=== PATIENT | male | born 1980 | race Caucasian/White ===

== ENCOUNTER 2017-03-03 07:21 | Emergency (ER) | payer OTHER ==
[2017-03-03] MEDS: SODIUM CHLORIDE 0.9% 500 ML IV STA ×2 (07:21→07:22)
[2017-03-03] MEDS ORDERED: ONDANSETRON 4 MG/2 ML VIAL IVP STA (07:23)
[2017-03-03] MEDS ORDERED: SODIUM CHLORIDE 0.9% 1,000 ML IV STA (07:23)
[2017-03-03] MEDS: HYDROmorphone 1 MG/ML 1 ML SYRINGE IVP STA ×2 (07:23→08:20)
[2017-03-03] MEDS ORDERED: RX INFO: IV CONTRAST WAS GIVEN 1 EACH MISC MISCELLANE PRN (07:23)
[2017-03-03] MEDS ORDERED: DIPH,PERTUS(ACELL)TETVAC-LF 0.5 ML VIAL IM ONE (07:23)
[2017-03-03] MEDS ORDERED: cefTRIAXone 2,000 MG in SODIUM CHLORIDE 0.9% 100 ML IVPB STA (07:28)
[2017-03-03 07:36] LABS: Basophils # (A) 0.1 k/uL (0-0.2); Basophils % (A) 1 %; CH 30.5; CHCM 33.2; Eosinophils # (A) 0.6 k/uL (0-0.7); Eosinophils % (A) 5 %; HCT 44.4 % (39.0-53.0); HDW 2.17; HGB 14.7 gm/dL (13.0-17.5); Luc # (Auto) 0.34; Luc % (Auto) 3; Lymphocytes % (A) 30 %; MCH 30.6 pg (25.0-35.0); MCHC 33.2 g/dL (31.0-37.0); MCV 92.2 fL (80.0-100.0); Mean Platelet Volume 7.2; Monocytes # (A) 0.6 k/uL (0-1.0); Monocytes % (A) 4 %; Neutrophils # (A) 7.8 k/uL (1.3-7.7); Neutrophils % (A) 58 %; RBC 4.82 m/uL (4.30-5.90); RDW 12.9 % (11.5-15.5); WBC 13.4 k/uL (3.8-10.6); WBC (Perox) 12.99
[2017-03-03 07:39] LABS: Glucose,Whole Blood 118 mg/dL (75-99)
[2017-03-03 07:41] LABS: Partial Thromboplastin Time 23.1 sec (22.0-30.0); Prothrombin Time 10.5 sec (9.0-12.0)
[2017-03-03 07:42] LABS: ALT 26 U/L (21-72); AST 19 U/L (17-59); Alkaline Phosphatase 38 U/L (38-126); Amylase 67 U/L (30-110); Anion Gap 16 mmol/L; Blood Urea Nitrogen 11 mg/dL (9-20); Calcium 8.5 mg/dL (8.4-10.2); Carbon Dioxide 20 mmol/L (22-30); Chloride 106 mmol/L (98-107); Glucose 97 mg/dL (74-99); Non-African American GFR(MDRD) >60 (>60 ml/min/1.73 sqM); Potassium 4.3 mmol/L (3.5-5.1); Sodium 142 mmol/L (137-145); Total Bilirubin 0.4 mg/dL (0.2-1.3); Total Protein 6.7 g/dL (6.3-8.2)
[2017-03-03 07:44] LABS: Alcohol 179 mg/dL
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
[2017-03-03 07:55] LABS: Creatine Kinase 99 U/L (55-170)
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
[2017-03-03 08:07] LABS: Creatine Kinase MB 0.7 ng/mL (0.0-2.4); Troponin I <0.012 ng/mL (0.000-0.034)
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
[2017-03-03 08:24] LABS: Appearance,Urine Clear (Clear); Bilirubin,Urine Negative (Negative); Glucose,Urine (UA) Negative (Negative); Ketones,Urine Negative (Negative); Leukocyte Esterase,Urine Negative (Negative); Nitrite,Urine Negative (Negative); Protein,Urine Negative (Negative); Specific Gravity,Urine 1.012 (1.001-1.035); UA Billing (MACRO vs. MICRO) CHEM; Urobilinogen,Urine <2.0 mg/dL (<2.0)
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
[2017-03-03] MEDS ORDERED: ceFAZolin 1,000 MG VIAL IV STA (08:44)
[2017-03-03 08:45] VITALS: BP 140/97; PULSE 104; RESP 20; TEMP 97.7
[2017-03-03] MEDS ORDERED: ceFAZolin 1,000 MG in DEXTROSE/WATER 1 50ML.BAG IVPB STA (08:48)
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
== END 2017-03-03 11:24 | disposition short-term general hospital (02) ==
LOC: EC 07:21
DX: S01.01XA Laceration without foreign body of scalp, initial encounter (principal); S67.22XA Crushing injury of left hand, initial encounter; F10.129 Alcohol abuse with intoxication, unspecified; M54.2 Cervicalgia; F17.200 Nicotine dependence, unspecified, uncomplicated; V48.5XXA Car driver injured in noncollision transport accident in traffic accident, initial encounter; Y92.410 Unspecified street and highway as the place of occurrence of the external cause
CPT/HCPCS: 99291; 96365 ×2; 96375 ×2; 96361 ×3; 12002; 36415; 93005; 86900; 86901; 80053; 82150; 82550; 82553; 83690; 84484; 85025; 85610; 85730; 86850; 81003; 80306; 80320; 71010; 72170; 73130; 72125; 70486; 70450; 71260; 74177; J2405; J0696; J1170; Q9967; J0690

== ENCOUNTER 2017-03-16 12:29 | Emergency (ER) | payer OTHER ==
[2017-03-16 12:36] VITALS: BP 146/88; PULSE 71; RESP 17; TEMP 97.5
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
== END 2017-03-16 13:19 | disposition home or self-care (01) ==
LOC: EC 12:29
DX: S66.912D Strain of unspecified muscle, fascia and tendon at wrist and hand level, left hand, subsequent encounter (principal); F17.200 Nicotine dependence, unspecified, uncomplicated; V87.8XXD Person injured in other specified noncollision transport accidents involving motor vehicle (traffic), subsequent encounter; Y92.410 Unspecified street and highway as the place of occurrence of the external cause
CPT/HCPCS: 99283

== ENCOUNTER 2017-04-13 10:50 | Emergency (ER) | payer OTHER ==
[2017-04-13 10:57] VITALS: BP 151/90; PULSE 88; RESP 16; TEMP 97
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
== END 2017-04-13 11:52 | disposition home or self-care (01) ==
LOC: EC 10:50
DX: M79.642 Pain in left hand (principal); Z98.890 Other specified postprocedural states; Z88.0 Allergy status to penicillin
CPT/HCPCS: 99283

== ENCOUNTER 2018-07-23 15:03 | Emergency (ER) | payer OTHER ==
[2018-07-23 15:18] VITALS: BP 128/86; PULSE 88; RESP 20; TEMP 97.5
[2018-07-23] MEDS ORDERED: PROPARACAINE 0.5% OPHTH DROPS 15 ML BTL LEFT EYE STA (15:30)
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
[2018-07-23] MEDS ORDERED: ERYTHROMYCIN 5 MG/GM OPHTH OINT 3.5 GM TUBE RIGHT EYE STA (16:16)
[2018-07-23] MEDS ORDERED: ERYTHROMYCIN 5 MG/GM OPHTH OINT 3.5 GM TUBE RIGHT EYE SCH (18:00)
== END 2018-07-23 16:51 | disposition home or self-care (01) ==
LOC: EC 15:03
DX: T15.01XA Foreign body in cornea, right eye, initial encounter (principal); Z88.0 Allergy status to penicillin; Y92.69 Other specified industrial and construction area as the place of occurrence of the external cause; Y99.0 Civilian activity done for income or pay
CPT/HCPCS: 65220; 99283

== ENCOUNTER 2020-11-23 13:59 | Emergency (ER) | payer OTHER ==
[2020-11-23 14:12] VITALS: BP 127/83; PULSE 108; RESP 20; TEMP 98.3
[2020-11-23] MEDS ORDERED: ONDANSETRON 4 MG ODT STARTER PACK 2 TAB BTL PO STA (14:37)
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
== END 2020-11-23 14:58 | disposition home or self-care (01) ==
LOC: EC 13:59
DX: R51.9 Headache, unspecified (principal); Z88.0 Allergy status to penicillin
CPT/HCPCS: 99284; S0119

== ENCOUNTER 2021-06-05 21:20 | Emergency (ER) | payer OTHER ==
[2021-06-05 21:32] VITALS: BP 128/75; PULSE 107; RESP 18; TEMP 97.9
[2021-06-05] MEDS ORDERED: ACYCLOVIR 800 MG TAB PO STA (22:02)
[2021-06-05] MEDS ORDERED: hydrOXYzine HCL 25 MG TAB PO STA (22:02)
[2021-06-05] MEDS ORDERED: IBUPROFEN 800 MG TAB PO STA (22:02)
[2021-06-05] MEDS ORDERED: MUPIROCIN 2% OINT 22 GM TUBE TOPICAL STA (22:02)
[2021-06-05] MEDS ORDERED: predniSONE 20 MG TAB PO STA (22:02)
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
== END 2021-06-05 22:24 | disposition home or self-care (01) ==
LOC: EC 21:20
DX: B02.9 Zoster without complications (principal); F32.9 Major depressive disorder, single episode, unspecified; Z79.1 Long term (current) use of non-steroidal anti-inflammatories (NSAID); Z79.52 Long term (current) use of systemic steroids; Z79.899 Other long term (current) drug therapy; Z88.0 Allergy status to penicillin
CPT/HCPCS: 99282; J7512

== ENCOUNTER 2022-04-02 12:52 | Emergency (ER) | payer OTHER ==
[2022-04-02 12:56] VITALS: TEMP 98
--- NOTE | 2022-04-02 13:26 | XR ---
EXAMINATION TYPE: XR chest 2V DATE OF EXAM: 04/02/2022 COMPARISON: NONE HISTORY: Chest pain TECHNIQUE: Frontal and lateral views of the chest are obtained. FINDINGS: There is no focal air space opacity. Vague nodular density overlying right rib #7. Consider CT on a n onemergent basis. No evidence for pneumothorax. No pleural effusion. The cardiac silhouette size is within normal limits. The osseous structures are grossly intact. IMPRESSION: 1. There is no focal air space opacity. Vague nodular density overlying right rib #7. Consider CT on a nonemergent basis.
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
[2022-04-02 14:26] VITALS: BP 132/70; PULSE 88; RESP 18
== END 2022-04-02 14:06 | disposition home or self-care (01) ==
LOC: EC 12:52
DX: J98.01 Acute bronchospasm (principal); J06.9 Acute upper respiratory infection, unspecified; Z88.0 Allergy status to penicillin
CPT/HCPCS: 71046

== ENCOUNTER 2022-04-15 23:34 | Emergency (ER) | payer OTHER ==
[2022-04-16 00:23] VITALS: TEMP 98.2
[2022-04-16 00:47] LABS: Basophils # (A) 0.1 k/uL (0-0.2); Basophils % (A) 1 %; Eosinophils # (A) 0.6 k/uL (0-0.7); Eosinophils % (A) 4 %; HCT 43.6 % (39.0-53.0); HGB 14.3 gm/dL (13.0-17.5); Lymphocytes # (A) 2.8 k/uL (1.0-4.8); Lymphocytes % (A) 19 %; MCH 29.6 pg (25.0-35.0); MCHC 32.7 g/dL (31.0-37.0); MCV 90.5 fL (80.0-100.0); Mean Platelet Volume 7.8; Monocytes # (A) 0.7 k/uL (0-1.0); Monocytes % (A) 5 %; Neutrophils % (A) 70 %; Platelet Count 308 k/uL (150-450); RBC 4.82 m/uL (4.30-5.90); RDW 12.4 % (11.5-15.5); WBC 14.4 k/uL (3.8-10.6)
--- NOTE | 2022-04-16 00:55 | XR ---
EXAMINATION TYPE: XR chest 2V DATE OF EXAM: 04/16/2022 COMPARISON: NONE HISTORY: Cough TECHNIQUE: 2 views FINDINGS: Heart and mediastinum are normal. Lungs are clear of infiltrate. There is faint 1 cm nodule over the right upper lobe. No heart failure. Diaphragm is normal. Bony thorax is intact IMPRESSION: There is faint right upper lobe nodule similar to recent exam of 04-02-22. Significance is not clear. Normal heart.
[2022-04-16 00:56] LABS: INR 0.9 (<1.2); Prothrombin Time 10.2 sec (9.0-12.0)
[2022-04-16 01:03] LABS: ALT 11 U/L (4-49); AST 20 U/L (17-59); African American GFR (CKD) >90 (>60 ml/min/1.73 sqM); Albumin 4.3 g/dL (3.5-5.0); Alkaline Phosphatase 65 U/L (38-126); Anion Gap 5 mmol/L; Blood Urea Nitrogen 5 mg/dL (9-20); Calcium 8.6 mg/dL (8.4-10.2); Carbon Dioxide 35 mmol/L (22-30); Chloride 97 mmol/L (98-107); Glucose 73 mg/dL (74-99); Magnesium 1.9 mg/dL (1.6-2.3); Non-African American GFR(CKD) >90 (>60 ml/min/1.73 sqM); Potassium 3.5 mmol/L (3.5-5.1); Sodium 137 mmol/L (137-145); Total Bilirubin 0.4 mg/dL (0.2-1.3); Total Protein 6.6 g/dL (6.3-8.2)
[2022-04-16] MEDS ORDERED: KETOROLAC 15 MG/ML 1 ML VIAL IVP STA (03:38)
[2022-04-16 04:07] VITALS: RESP 18
[2022-04-16 04:22] LABS: ALT 11 U/L (4-49); AST 19 U/L (17-59); African American GFR (CKD) >90 (>60 ml/min/1.73 sqM); Albumin 4.1 g/dL (3.5-5.0); Alkaline Phosphatase 64 U/L (38-126); Anion Gap 5 mmol/L; Blood Urea Nitrogen 6 mg/dL (9-20); Calcium 8.4 mg/dL (8.4-10.2); Carbon Dioxide 35 mmol/L (22-30); Chloride 98 mmol/L (98-107); Glucose 100 mg/dL (74-99); Non-African American GFR(CKD) >90 (>60 ml/min/1.73 sqM); Potassium 3.4 mmol/L (3.5-5.1); Sodium 138 mmol/L (137-145); Total Bilirubin 0.3 mg/dL (0.2-1.3); Total Protein 6.5 g/dL (6.3-8.2)
[2022-04-16 04:32] LABS: Basophils # (A) 0.1 k/uL (0-0.2); Basophils % (A) 1 %; Eosinophils # (A) 0.5 k/uL (0-0.7); Eosinophils % (A) 5 %; HCT 44.6 % (39.0-53.0); HGB 14.6 gm/dL (13.0-17.5); Lymphocytes # (A) 2.2 k/uL (1.0-4.8); Lymphocytes % (A) 19 %; MCH 29.8 pg (25.0-35.0); MCHC 32.7 g/dL (31.0-37.0); MCV 91.1 fL (80.0-100.0); Mean Platelet Volume 7.8; Monocytes # (A) 0.7 k/uL (0-1.0); Monocytes % (A) 6 %; Neutrophils # (A) 8.1 k/uL (1.3-7.7); Neutrophils % (A) 68 %; Platelet Count 323 k/uL (150-450); RBC 4.89 m/uL (4.30-5.90); RDW 13.2 % (11.5-15.5); WBC 11.9 k/uL (3.8-10.6)
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
[2022-04-16 05:10] VITALS: BP 109/74; PULSE 62
== END 2022-04-16 05:12 | disposition home or self-care (01) ==
LOC: EC 23:34
DX: R09.1 Pleurisy (principal); Z88.0 Allergy status to penicillin
CPT/HCPCS: 36415; 93005; 85379; 80053; 83735; 84484; 85025; 85610; 85730; 71046; 99285; 96374; J1885

== ENCOUNTER 2022-06-18 22:19 | Emergency (ER) | payer OTHER ==
[2022-06-18 22:25] VITALS: PULSE 110; RESP 22; TEMP 98.9
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
[2022-06-18 22:50] LABS: Amphetamine Screen,Urine Detected (NotDetected); Barbiturate Screen,Urine Not Detected (NotDetected); Benzodiazepines Screen,Urine Detected (NotDetected); Cocaine Screen,Urine Not Detected (NotDetected); Methadone Screen, Urine Not Detected (NotDetected); Opiate Screen,Urine Not Detected (NotDetected); Oxycodone Screen, Urine Not Detected (NotDetected); Phencyclidine Screen,Urine Not Detected (NotDetected); Tricyclic Antidepressant,Urine Not Detected (NotDetected); Urn Cannabinoid Scrn Not Detected (NotDetected)
[2022-06-19 02:29] VITALS: BP 131/78
== END 2022-06-19 02:30 | disposition home or self-care (01) ==
LOC: EC 22:19
DX: F99 Mental disorder, not otherwise specified (principal); Z88.0 Allergy status to penicillin; Z88.8 Allergy status to other drugs, medicaments and biological substances
CPT/HCPCS: 80306; 82075; 99283